=== PATIENT | male | born 1985 | race Caucasian/White ===

== ENCOUNTER 2023-01-06 08:58 | Outpatient (CLI) | payer MEDICARE ==
[2023-01-06] MEDS ORDERED: Magnevist 469MG/ML 20 ML VIAL ONE (09:59)
== END 2023-01-06 08:59 | disposition home or self-care (01) ==
LOC: CSHMRI 08:58
PROVIDERS: ATTEND Psychiatry & Neurology Neurology
DX: G35 Multiple sclerosis (principal); M47.812 Spondylosis without myelopathy or radiculopathy, cervical region; G93.89 Other specified disorders of brain
CPT/HCPCS: 70553; 72156